=== PATIENT | male | born 1955 | race Caucasian/White ===

== ENCOUNTER 2022-05-25 13:22 | Emergency (ER) | payer MEDICARE, SELFPAY ==
--- NOTE | 2022-05-25 13:24 | ED.URI ---
HPI - URI/Sore Throat General Chief Complaint: Upper Respiratory Infection Stated Complaint: soree throat Time Seen by Provider: 05/25/22 13:48 Source: patient and RN notes reviewed Mode of arrival: ambulatory Limitations: no limitations History of Present Illness HPI Narrative: 66-year-old male presents with concern for sore throat, sore on the top of his mouth. He denies fever, aches, chills, sweats, cough, nasal congestion, rhinorrhea, headache, shortness of breath. Reports exposure to RSV and strep. Denies taking any [id number] medications for his symptoms MD elicited complaint: sore throat Related Data Home Medications Medication Instructions Recorded Confirmed allopurinol 100 mg tablet mg 05/25/22 apixaban 5 mg tablet (Eliquis) mg 05/25/22 atorvastatin 40 mg tablet mg 05/25/22 carvedilol 12.5 mg tablet mg 05/25/22 clopidogrel 75 mg tablet mg 05/25/22 furosemide 40 mg tablet mg 05/25/22 memantine 10 mg tablet mg 05/25/22 metformin 500 mg tablet mg 05/25/22 potassium chloride 20 mEq meq PO 05/25/22 tablet,extended release(part/cryst) rivastigmine tartrate 3 mg capsule mg 05/25/22 sacubitril 24 mg-valsartan 26 mg tablet 05/25/22 tablet (Entresto) Review of Systems Review of Systems: CONSTITUTIONAL: Denies malaise, chills, sweats, or fever. EYES: Denies visual changes, redness, or discharge. ENT: Denies rhinorrhea, congestion, sinus pain, otalgia. Reports sore throat. CARDIOVASCULAR: Denies chest pain, palpitations, or edema. RESPIRATORY: Denies cough. Denies dyspnea. GASTROINTESTINAL: Denies abdominal pain, nausea, vomiting, diarrhea SKIN: Denies rash or itching. MUSCULOSKELETAL: Denies myalgia. NEUROLOGIC: Denies headache. All systems reviewed & are unremarkable except as noted in HPI and below PMFSH Comments At time of signature, agree with nursing past medical, surgical, social and family history. There is no relevant family history pertinent to the presenting complaint Exam Narrative: GENERAL: Well-appearing, well-nourished, and in no acute distress. HEAD: Normocephalic EYES: PERRLA, conjunctivae clear ENT: Nares clear, postnasal drainage noted. Mucous membranes moist. TM pearly gallo with dull light reflex bilaterally; no tragal tenderness. Oropharynx not erythematous without lesions. Tonsils not enlarged and without exudate, no drooling, no hoarseness, no trismus, uvula midline. NECK: Supple. No lymphadenopathy CHEST: Clear to auscultation, breath sounds equal. No wheezing, rhonchi, rales, or stridor. No respiratory distress, speaks in full sentences. HEART: Regular rate and rhythm. No murmur heard. SKIN: Warm, dry, no rash. NEURO: Alert and oriented x3. PSYCH: Normal mood and affect Course Course Emergency Course: Patient is aware of diagnosis, understands and agrees to treatment plan. Anticipatory guidance given. Patient agrees to follow-up as directed and is aware of reasons to seek care at the emergency department. Portions of this record may have been created with voice recognition software Level of Care: Express Care Visit Vital Signs Vital signs: Vital Signs Temperature 98.0 F 05/25/22 13:38 Pulse Rate 56 L 05/25/22 13:38 Respiratory Rate 16 05/25/22 13:38 Blood Pressure 100/54 L 05/25/22 13:38 Pulse Oximetry 98 05/25/22 13:38 Oxygen Delivery Room Air 05/25/22 13:38 Temperature 98.0 F 05/25/22 13:39 Pulse Rate 56 L 05/25/22 13:39 Respiratory Rate 16 05/25/22 13:39 Blood Pressure 100/54 L 05/25/22 13:39 Pulse Oximetry 98 05/25/22 13:39 Oxygen Delivery Room Air 05/25/22 13:39 Reviewed. MDM - URI/Sore Throat MDM Narrative Medical decision making narrative: Differential diagnosis considered: Dickerson virus, strep pharyngitis, allergic rhinitis, upper respiratory tract infection, sinusitis, rhinosinusitis, nasopharyngitis. viral pharyngitis, otitis media, otitis externa, pneumonia, bronchitis, viral cough syndrome, viral syndr
[2022-05-25 13:38] VITALS: BP 100/54; PULSE 56; RESP 16; TEMP 36.7; O2SAT 98
[2022-05-25 13:39] VITALS: BP 100/54; PULSE 56; RESP 16; TEMP 36.7; O2SAT 98
== END 2022-05-25 14:03 | disposition home or self-care (01) ==
PROVIDERS: Emergency Provider Nurse Practitioner; PCP Family Medicine
DX: J06.9 Acute upper respiratory infection, unspecified (principal); G30.9 Alzheimer's disease, unspecified; F02.80 Dementia in other diseases classified elsewhere, unspecified severity, without behavioral disturbance, psychotic disturbance, mood disturbance, and anxiety; E78.00 Pure hypercholesterolemia, unspecified; I10 Essential (primary) hypertension; E11.9 Type 2 diabetes mellitus without complications
CPT/HCPCS: 87081; 87880; 99203; G0463